=== PATIENT | male | born 1990 | race Caucasian/White ===

== ENCOUNTER 2023-09-07 16:53 | Emergency (ER) | payer MEDICAID, SELFPAY ==
--- NOTE | 2023-09-07 17:00 | RT.EKG_ITS ---
APPROVED REPORT Exam: Resting ECG Reason for Exam: tachy x3 days Patient Location: E HR:101 bpm ECG Measurements Heart Rate 101 AXIS AK 159 P 78 QRSd 109 QRS 43 QT 335 T 37 QTc 434 Conclusion Sinus tachycardia...rate> 99 Right atrial enlargement...P>0.25mV 2 lds or<-0.24mV aVR/aVL
[2023-09-07 17:02] VITALS: BP 157/118; PULSE 124; RESP 18; TEMP 37.4; O2SAT 95
--- NOTE | 2023-09-07 17:34 | ED.GENADUL_ITS ---
HPI General Mode of arrival: ambulatory . Date/Time Provider Initiated Documentation: 09/07/23 16:55 . Limitations to Documentation: no limitations . Information obtained by: patient, RN notes reviewed and old records reviewed . HPI Narrative: 32 year old male presents to ED with cc URI type symptoms associated with N/V and watery diarrhea x 3 days. He has been taking Tylenol every 4 hours. T-max 103. Also associated myalgias. Recently exposed to RSV. Last emesis at 1200 noon today. Denies abd pain, Dysuria, or any other symptoms. Reports cough with clear phlegm. 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 Appears stated age. Normal body habitus. Head: Normocephalic, no trauma. Eyes: Pupils PERRL, Red reflex noted, EOM's intact. Eyelids symmetrical without lesions, discharge, or swelling. ENT: Bilateral TM's WNL, External ear normal to inspection, no mastoid TTP, swelling, or erythema, Nasal turbinates WNL, no nasal discharge. Normal dentition, Posterior pharynx slightly erythemic, no exudate. Chest: RRR, Normal S1, S2, distal pulses intact. Resp: Lungs clear to auscultation bilaterally, no wheezes, rales, or rhonchi. Abdomen: Soft, non-distended, Normoactive bowel sounds all 4 quads. Musculoskeletal: Normal gait, 5/5 strength to all four extremities. Skin: No suspicious rashes or lesions. Capillary refill less than 2 sec. Neurologic: Cranial nerves II-XII intact. Alert and oriented x 3. Motor: No deficits noted. Hematologic/Lymphatic: No ecchymosis, no lymphadenopathy. Course Vital Signs Vital signs: Vital Signs Temperature 37.4 C 09/07/23 17:02 Pulse 124 H 09/07/23 17:02 Respiratory Rate 18 09/07/23 17:02 Blood Pressure 157/118 H 09/07/23 17:02 Pulse Oximetry 95 09/07/23 17:02 Temperature 37.4 C 09/07/23 17:02 Temperature Source Temporal Artery Scan 09/07/23 17:02 Pulse 124 H 09/07/23 17:02 Respiratory Rate 18 09/07/23 17:02 Respiratory Effort Normal, Non-Labored 09/07/23 17:06 Blood Pressure 157/118 H 09/07/23 17:02 Blood Pressure Position Sitting 09/07/23 17:02 Pulse Oximetry 95 09/07/23 17:02 Oxygen Delivery Method Room Air 09/07/23 17:02 Oxygen Flow Rate 0 09/07/23 17:02 Medical Decision Making 32 year old male presents to ED with cc URI type symptoms associated with N/V and watery diarrhea x 3 days. He has been taking Tylenol every 4 hours. T-max 103. Also associated myalgias. Recently exposed to RSV. Last emesis at 1200 noon today. Denies abd pain, Dysuria, or any other symptoms. Reports cough with clear phlegm. W/U ordered including cbc, cmp, lipase, UA, Fluvid and Strep swab. 1 liter NS ordered, patient denies nausea at this time. No leukocytosis, absolute neutrophils 6.93, CMP shows BUN 20, glucose 155 lipase low, positive influenza A. Patient given a liter of normal saline. After infusion his heart rate has improved to 88. Discussed labs with patient who verbalized understanding. He declines any Tamiflu at this time. I did give him a albuterol inhaler to help with the shortness of breath if needed. Discussed home care and strict return instructions. This text was generated using [employer]ation system, please disregard any oddities of phrase or misspellings. Lab Data Lab results reviewed: Yes I reviewed the patient's lab results. Labs: 09/07/23 17:40 Pharynx Group A Streptococcus Culture - Pending Laboratory Tests Range/Units 09/07/23 09/07/23 17:20 17:28 WBC (4.4-10.8) 10^3/uL 8.85 RBC (4.36-5.78) 10^6/uL 5.00 Hgb (13.5-17.5) g/dL 16.0 Hct (40.0-50.0) % 45.1 MCV (80-95) fL 90 MCH (27.0-33.0) pg 32.0 MCHC (32.0-36.0) % 35.5 RDW (11.8-14.1) % 12.1 Plt Count (130-400) 10^3/uL 188 MPV (8.0-11.0) fL 10.5 Immature Gran % 0.1 Neutrophils % 78.4 Lymphocytes % 13.1 Monocytes % 8.1 Eosinophils % 0.1 Basophils % 0.2 Nucleated RBC % (0.0-0.3) % 0.0 Absolute Neutrophils (1.2-6.7) 10^3/uL 6.93 H Absolute Lymphocytes (1.2-3.4) 10^3/uL 1.16 L Absolute Monocytes (0.1-0.8) 10^3/uL 0.72 Absolute Eosinophils (0.0-0.7) 10^3/uL 0.01 Absolute Basophils (0.0-0.2) 10^3/uL 0.02 Sodium (136-145) mmol/L 136 Potassium (3.5-5.1) mmol/L 3.6 Chloride (98-107) mmol/L 99 Carbon Dioxide (21.0-32.0) mmol/L 26.1 Anion Gap (3-11) mmol/L 10.9 BUN (7-18) mg/dL 20 H Creatinine (0.70-1.30) mg/dL 1.0 Est GFR (CKD-EPI 2020) (mL/min/1.73m2) 103.19 Glucose (74-106) mg/dL 155 H Calcium (8.5-10.1) mg/dL 9.1 Magnesium (1.8-2.4) mg/dL 1.9 Total Bilirubin (0.2-1.0) mg/dL 0.7 AST (15-37) U/L 35 ALT (16-63) U/L 26 Alkaline Phosphatase (46-116) U/L 75 Total Protein (6.4-8.2) g/dL 8.0 Albumin (3.4-5.0) g/dL 4.1 Lipase (16-77) U/L 12 L COVID-19 Source Nasopharynx SARS-CoV-2 (PCR) (Negative) Negative Influenza Type A (PCR) (Negative) Positive A Influenza Type B (PCR) (Negative) Negative RSV (PCR) (Negative) Negative Quality:SDOH Health Related Social Needs: No Data to Display PFSH All Active Problems (Updated 09/07/23 @ 18:13 by Amber Delvalle NP) Influenza A (Acute) Social History Smoking/Tobacco Use Status: Current every day Tobacco Type: cigarettes Smoking risk assessment performed?: Yes Alcohol Intake: never Drug use: Daily Substance use type: marijuana Do you feel safe at home: Yes Do you feel safe in your relationship?: Yes Discharge Plan Disposition Patient Disposition: Home Discharge Details Clinical Impression: Influenza A Primary Care Provider: None,None ED Provider: Amber Delvalle Home Meds and New Rx's Prescriptions: No Action buprenorphine-naloxone [Suboxone] 2-0.5 mg film 1 film sublingual DAILY Discharge Instructions Instructions: H1N1 Influenza (ED) Additional Instructions: Please take the albuterol inhaler 1 or 2 puffs every 4-6 hours as needed for wheezing and shortness of breath. You have tested positive for influenza A. Follow up with primary care provider in 3-5 days. Return to ED sooner if any worsening or concerns. Increase oral fluids. Please take Tylenol or Ibuprofen with food every 4-6 hours as needed for pain and swelling. Stand Alone Forms: Work Release Discharge Data Discharge Date/Time-TO BE ENTERED AT DEPARTURE: 09/07/23 18:30
[2023-09-07] MEDS: Normal Saline 1,000 ML 1000 ML IV (17:35)
[2023-09-07 17:46] LABS: Abs Immature Grans 0.01 10^3/uL (0.0-0.06); Absolute Basophil Count 0.02 10^3/uL (0.0-0.2); Absolute Eosinophil Count 0.01 10^3/uL (0.0-0.7); Absolute Lymphocyte Count 1.16 10^3/uL (1.2-3.4); Absolute Monocyte Count 0.72 10^3/uL (0.1-0.8); Absolute Neutrophil Count 6.93 10^3/uL (1.2-6.7); Basophils % 0.2; Eosinophils % 0.1; HCT 45.1 % (40.0-50.0); Immature Grans % 0.1; Lymphocytes % 13.1; MCHC 35.5 % (32.0-36.0); MCV 90 fL (80-95); MPV 10.5 fL (8.0-11.0); Monocytes % 8.1; Neutrophils % 78.4; Platelet Count 188 10^3/uL (130-400); RDW 12.1 % (11.8-14.1); RDW-SD 39.8 fL; WBC 8.85 10^3/uL (4.4-10.8)
[2023-09-07 17:54] LABS: ALT 26 U/L (16-63); AST 35 U/L (15-37); Albumin 4.1 g/dL (3.4-5.0); Alkaline Phosphatase 75 U/L (46-116); Anion Gap 10.9 mmol/L (3-11); BUN 20 mg/dL (7-18); Bilirubin, Total 0.7 mg/dL (0.2-1.0); CO2 26.1 mmol/L (21.0-32.0); Calcium 9.1 mg/dL (8.5-10.1); Chloride 99 mmol/L (98-107); Estimated GFR 103.19 (mL/min/1.73m2); Glucose 155 mg/dL (74-106); Lipase 12 U/L (16-77); Magnesium 1.9 mg/dL (1.8-2.4); Potassium 3.6 mmol/L (3.5-5.1); Sodium 136 mmol/L (136-145)
[2023-09-07 18:04] LABS: COVID-19 PCR Negative (Negative); Influenza B PCR Negative (Negative); RSV PCR Negative (Negative)
[2023-09-07 18:06] LABS: Influenza A PCR Positive (Negative); Source Nasopharynx
[2023-09-07 18:15] VITALS: BP 122/65; PULSE 88; RESP 18; TEMP 37.2; O2SAT 97
[2023-09-07] MEDS: Albuterol HFA 8 GM 60 PUFF INH IH (18:22)
[2023-09-07 18:25] VITALS: BP 122/65; PULSE 88; RESP 18; TEMP 37.2; O2SAT 97
== END 2023-09-07 18:30 | disposition home or self-care (01) ==
LOC: ER 18:16
PROVIDERS: Emergency Provider Registered Nurse Emergency
DX: J10.1 Influenza due to other identified influenza virus with other respiratory manifestations (principal); R00.0 Tachycardia, unspecified; F17.210 Nicotine dependence, cigarettes, uncomplicated; Z11.52 Encounter for screening for COVID-19
CPT/HCPCS: 80053; 83690; 87637; 93005; 96360; 99284; 83735; 85025; 87081; 93010; 99283